=== PATIENT | male | born 1955 | race Caucasian/White ===

== ENCOUNTER 2017-10-11 15:18 | Emergency (ER) | payer BC ==
[2017-10-11 15:34] VITALS: BP 112/60
--- NOTE | 2017-10-11 15:38 | UC ---
General HPI - HPI Summary HPI Summary: has been feeling bad "for a while" but acutely worse in the past 7 days and even more today---checked his BS with glucometer and it read H. Reports Polydipsia, polyphagia and polyuria - History of Current Complaint Chief Complaint: UCDizziness Stated Complaint: HIGH BLOOD SUGAR Time Seen by Provider: 10/11/17 15:35 Hx Obtained From: Patient Onset/Duration: Gradual Onset, Worse Since - past week Timing: Constant Pain Intensity: 0 Associated Signs & Symptoms: Positive: Weakness - Allergy/Home Medications Allergies/Adverse Reactions: Allergies Allergy/AdvReac Type Severity Reaction Status Date / Time No Known Allergies Allergy Verified 10/11/17 15:34 PMH/Surg Hx/FS Hx/Imm Hx Previously Healthy: No Endocrine History: Diabetes, Dyslipidemia Other Endocrine History: pcp sugested started glucophage last year -patient wanted to try diet and e Cardiovascular History: Hypertension - Surgical History Surgical History: None - Family History Known Family History: Positive: None - Social History Occupation: Employed Full-time Lives: With Family Alcohol Use: None Alcohol Amount: Sober for 7 years Substance Use Type: None Smoking Status (MU): Never Smoked Tobacco Review of Systems Constitutional: Negative Skin: Negative Eyes: Negative ENT: Negative Respiratory: Other - MARTI Cardiovascular: Negative Gastrointestinal: Negative Genitourinary: Frequency, Urgency Motor: Negative Neurovascular: Negative Musculoskeletal: Negative Neurological: Negative Psychological: Negative Is Patient Immunocompromised?: No All Other Systems Reviewed And Are Negative: Yes Physical Exam Triage Information Reviewed: Yes Appearance: Well-Appearing, No Pain Distress, Well-Nourished Vital Signs: Initial Vital Signs Temp 98.7 F 10/11/17 15:31 Pulse 99 10/11/17 15:31 Resp 20 10/11/17 15:31 BP 112/60 10/11/17 15:31 Pulse Ox 98 10/11/17 15:31 Vital Signs Reviewed: Yes Eye Exam: Normal Eyes: Positive: Conjunctiva Clear ENT Exam: Normal ENT: Positive: Normal ENT inspection, Hearing grossly normal. Negative: Trismus , Muffled voice, Hoarse voice Dental Exam: Normal Neck exam: Normal Neck: Positive: Supple, Nontender, No Lymphadenopathy Respiratory Exam: Normal Respiratory: Positive: Chest non-tender, Lungs clear, Normal breath sounds, No respiratory distress, No accessory muscle use Cardiovascular Exam: Normal Cardiovascular: Positive: RRR, No Murmur, Pulses Normal, Brisk Capillary Refill Musculoskeletal Exam: Normal Musculoskeletal: Positive: Strength Intact, ROM Intact Neurological Exam: Normal Neurological: Positive: Alert, Muscle Tone Normal Psychological Exam: Normal Skin Exam: Normal Diagnostics - Laboratory Diagnostic Studies Completed/Ordered: ua- sg ,1.005, - ketones, +3 glucose,, FSBS High (>400) - EKG Cardiac Rate: NL Cardiac Rhythm: Sinus: Normal Ectopy: PACs ST Segment: Normal Course/Dx - Course Course Of Treatment: IVF,[place] [facility] [place] - Differential Dx - Multi-Symptom Provider Diagnoses: HYperglycemia - Physician Notifications Discussed Patient Care With: Cy Taylor Time Discussed With Above Provider: 16:00 Instructed by Provider To: Transfer Discharge - Sign-Out/Discharge Documenting (check all that apply): Patient Departure - Discharge Plan Condition: Fair Disposition: TRANS HIGHER LVL OF CARE FAC Referrals: Pepito Jackson MD [Primary Care Provider] - - Billing Disposition and Condition Condition: FAIR Disposition: Trans Higher Lvl of Care Fac
[2017-10-11] MEDS ORDERED: NS 0.9% 1000 ML* 1,000 ML IV ONE (15:50)
== END 2017-10-11 16:20 | disposition short-term general hospital (02) ==
LOC: UCEAST 15:18
DX: E11.65 Type 2 diabetes mellitus with hyperglycemia (principal); I10 Essential (primary) hypertension; Z79.84 Long term (current) use of oral hypoglycemic drugs
CPT/HCPCS: 81003; 93005; 96360; 99213; G0463

== ENCOUNTER 2017-10-11 16:38 | Observation (INO) | payer BC ==
--- NOTE | 2017-10-11 18:39 | ED ---
HPI Diabetic - HPI Summary HPI Summary: This is screly Ruffin documenting for attending Cy Taylor MD. Pt is a 62 y/o male who presents to [facility] c/o high blood sugar. He has never been diagnosed with DM before, but had a blood sugar level of 128 last Fall. Today he c/o extreme thirst, increased urinary frequency, weight loss, fatigue, and food cravings. Pt denies any pain. Pt was prescribed medication, but did not take it. FHx DM. PMHx HTN. - History Of Current Complaint Chief Complaint: EDDiabeticProb Time Seen by Provider: 10/11/17 16:51 Hx Obtained From: Patient Onset/Duration: Gradual Onset, Still Present Timing: Constant Character: Alert Aggravating: Non-compliant - Medications prescribed by PCP last Fall Associated Signs & Symptoms: Polydipsia, Polyuria, Weight Loss Related History: Other - FHx of DM - Allergies/Home Medications Allergies/Adverse Reactions: Allergies Allergy/AdvReac Type Severity Reaction Status Date / Time No Known Allergies Allergy Verified 10/11/17 15:34 PMH/Surg Hx/FS Hx/Imm Hx Endocrine/Hematology History: Denies: Hx Diabetes, Hx Thyroid Disease Cardiovascular History: Reports: Hx Hypertension Respiratory History: Denies: Hx Asthma, Hx Chronic Obstructive Pulmonary Disease (COPD) GI History: Denies: Hx Ulcer Infectious Disease History: No Infectious Disease History: Denies: Hx Hepatitis, Hx Human Immunodeficiency Virus (HIV), Traveled Outside the [place] in Last 30 Days - Family History Known Family History: Positive: Diabetes - Social History Alcohol Use: None Alcohol Amount: Sober for 7 years Substance Use Type: Reports: None Smoking Status (MU): Never Smoked Tobacco Review of Systems Positive: Fatigue, Other - Polydipsia, weight loss Positive: Other - Food cravings Positive: frequency, urgency Negative: Myalgia All Other Systems Reviewed And Are Negative: Yes Physical Exam - Summary Physical Exam Summary: VITAL SIGNS: Reviewed. GENERAL: Patient is a well-developed and nourished MALE who is lying comfortable in the stretcher. Patient is not in any acute respiratory distress. HEAD AND FACE: No signs of trauma. No ecchymosis, hematomas or skull depressions. No sinus tenderness. EYES: PERRLA, EOMI x 2, No injected conjunctiva, no nystagmus. EARS: Hearing grossly intact. Ear canals and tympanic membranes are within normal limits. MOUTH: Oropharynx within normal limits. NECK: Supple, trachea is midline, no adenopathy, no JVD, no carotid bruit, no c- spine tenderness, neck with full ROM. CHEST: Symmetric, no tenderness at palpation LUNGS: Clear to auscultation bilaterally. No wheezing or crackles. CVS: Regular rate and rhythm, S1 and S2 present, no murmurs or gallops appreciated. ABDOMEN: Soft, non-tender. No signs of distention. No rebound no guarding, and no masses palpated. Bowel sounds are normal. EXTREMITIES: FROM in all major joints, no edema, no cyanosis or clubbing. NEURO: Alert and oriented x 3. No acute neurological deficits. Speech is normal and follows commands. SKIN: Dry and warm Triage Information Reviewed: Yes Vital Signs On Initial Exam: Initial Vitals Temp Pulse Resp BP Pulse Ox 98 F 80 16 126/84 100 10/11/17 16:42 10/11/17 16:42 10/11/17 16:42 10/11/17 16:42 10/11/17 16:42 Vital Signs Reviewed: Yes Diagnostics - Vital Signs Vital Signs Temp Pulse Resp BP Pulse Ox 10/11/17 16:42 98 F 80 16 126/84 100 - Laboratory Result Diagrams: 10/11/17 18:39 10/11/17 18:39 Lab Statement: Any lab studies that have been ordered have been reviewed, and results considered in the medical decision making process. - EKG 19:36 Cardiac Rate: NL - 74 bpm EKG Rhythm: Sinus Rhythm ST Segment: Normal EKG Interpretation: Q wave in V3 Diabetic Course/Dx - Course Assessment/Plan: Patient is a 62-year-old male who presents to the emergency department with a chief complaint of having polydipsia and polyuria and some polyphagia. The patient has no history of diabetes however his last blood test showed that the blood pressure was [address] Jackson. Blood test result shows a slight anemia, sodium of 119, BUN/creatinine 30 creatinine 1.6 glucose of 1054 CRP of 34. Urinalysis is negative for UTI. Chest x-ray impression: EKG shows a normal sinus rhythm with no ST elevation. And 80 course the patient was started with 2 IV accesses, the patient was given 2 L of IV fluids, and I order an insulin drip. At this time I discussed my physical exam and findings with Dr. Love from the hospitalist services and he agrees to admit the patient to his services for further workup and management. He reports that he will get a bed in ICU. At this point the patient is hemoglobin and crit stable alert and oriented 3. - Diagnoses Provider Diagnoses: Type 2 diabetes mellitus with hyperosmolar nonketotic hyperglycemia - Physician Notifications Discussed Care Of Patient With: Davdi Love Time Discussed With Above Provider: 19:27 Instructed by Provider To: Admit As Inpatient - Dr. Love accepts pt for admission. Discharge - Sign-Out/Discharge Documenting (check all that apply): Patient Departure - Admit - Discharge Plan Condition: Stable Disposition: ADMITTED TO [facility] Referrals: Pepito Jackson MD [Primary Care Provider] -
[2017-10-11 18:46] LABS: ABS Basophils 0 10^3/ul (0-0.2); ABS Eosinophils 0.1 10^3/ul (0-0.6); ABS Lymphocytes 1.1 10^3/ul (1.0-4.8); ABS Monocytes 0.6 10^3/ul (0-0.8); ABS Neutrophils 8.6 10^3/ul (1.5-7.7); ABS Nucleated RBC 0 10^3/ul; Eosinophil % 0.7 % (0-6); Hematocrit 36 % (42-52); Lymphocyte % 10.3 % (25-47); Mean Corpuscular HGB Conc 33 g/dl (31-36); Mean Corpuscular Hemoglobin 33 pg (27-31); Mean Corpuscular Volume 100 fL (80-94); Mean Platelet Volume 9.1 um3 (7.4-10.4); Nucleated Red Blood Cells % 0; Platelet Count 406 10^3/ul (150-450); Red Blood Count 3.61 10^6/ul (4.00-5.40); Red Cell Distribution Width 13 % (10.5-15); White Blood Count 10.4 10^3/ul (3.5-10.8)
[2017-10-11] MEDS: NS 0.9% 1000 ML* 3,000 ML IV ONE (18:53)
[2017-10-11 19:05] LABS: EGFR Non-African American 43.1 (>60)
[2017-10-11 19:12] LABS: Urine Appearance Clear; Urine Blood 1+ (Negative); Urine Color Yellow; Urine Ketones Negative (Negative); Urine Protein Negative (Negative); Urine Red Blood Cell Trace(0-2/hpf) (Absent); Urine Specific Gravity 1.023 (1.010-1.030); Urine Urobilinogen Negative (Negative); Urine White Blood Cell Absent (Absent)
[2017-10-11] MEDS ORDERED: Insulin IVPB 100 units/100 ml 100 UNITS/100 ML UNIT IVPB ONE ×2 (19:24→20:10)
[2017-10-11] MEDS ORDERED: Al Hydrox/Mg Hydrox/Simet LIQ* 30 ML UDC PO PRN (20:34)
[2017-10-11] MEDS ORDERED: Albuterol 2.5 MG/3 ML NEB.SOL* (0.083%) INH PRN (20:34)
[2017-10-11] MEDS ORDERED: Ondansetron INJ* 2 MG/ML VIAL IV PRN (20:34)
[2017-10-11] MEDS ORDERED: Magnesium Hydroxide LIQ* 30 ML UDC PO PRN (20:34)
[2017-10-11] MEDS ORDERED: Acetaminophen TAB* 325 MG PO PRN (20:34)
--- NOTE | 2017-10-11 22:29 | HP ---
AMENDED REPORT NOW INCLUDES COSIGNER DESIGNATION - ESIGNED BEFORE ADJUSTMENT CC: Pepito Jackson MD* ADMISSION HISTORY AND PHYSICAL: DATE OF ADMISSION: 10/11/17. PATIENT OF: David Love MD. PRIMARY CARE PHYSICIAN: Pepito Jackson MD. ATTENDING HOSPITALIST WHILE THE PATIENT HERE: Susan Kate* (DICTATED BY GERDA BARR) CHIEF COMPLAINT: Fatigue, polydipsia, polyuria and new onset diabetes mellitus. HISTORY OF PRESENT ILLNESS: Mr. Ayala is a 62-year-old gentleman, who has a past medical history significant for hypertension and hyperlipidemia, who presented to the emergency room earlier today after he was sent from the [facility]gent Care [facility] due to extremely elevated blood glucose level. The patient notes for the past couple of weeks or so he had noticed increased fatigue and decreased stamina overall. He also had been experiencing increasing episodes of polydipsia, polyuria as well as increased craving to eat sweats. He was diagnosed with diabetes mellitus back of last fall according to his statement and was put on some oral medications to take, however, the patient ignored his primary care physician's advice and did not take his medicine and has never followed up with him since. He presented to the emergency room and initial blood glucose was check was over 1000. He reports associated bilateral toes numbness, but denies any visual changes, fever, chills, shortness of breath, cough or any other associated symptoms. He, prior to that, is relatively healthy upper middle age gentleman, who has been on medication for a known history of hypertension and hyperlipidemia. He was evaluated in the emergency room and had blood gases drawn that showed normal pH of 7.38. Again, his glucose was extremely elevated for which he was started on a insulin drip and we were asked to see the patient for further evaluation of new onset diabetes mellitus and to consider admission for control of his hyperglycemia. PAST MEDICAL HISTORY: As mentioned above, significant for hypertension and hyperlipidemia. PAST SURGICAL HISTORY: None. MEDICATIONS: His medications at home include: 1. Lipitor 10 mg p.o. q. daily. 2. Lisinopril 5 mg p.o. q. daily. 3. Metoprolol succinate 25 mg p.o. q. daily. ALLERGIES: He has no known drug allergies. FAMILY HISTORY: Significant for coronary artery disease with [place] in his father back in his 50s, also his father with a history of alcoholism. His mother with history of CVA and he has a brother with history of prostate cancer. 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 He has never smoked cigarettes. He is a recovered alcoholic, who used to drink in the remote past, but quit drinking back in 2012. He used to occasionally smoke marijuana, but denies any illicit drug use now. He is and has two grown up step children and his is the healthcare proxy carrier. REVIEW OF SYSTEMS: See HPI. Otherwise, 14-point review of systems were examined and were essentially negative. PHYSICAL EXAMINATION GENERAL: He is a pleasant, healthy-appearing upper middle aged gentleman, in no acute distress or discomfort at the time of admission. VITAL SIGNS: Revealed a temperature of 98, blood pressure of 141/82, pulse of 79, respirations of 18 with O2 sat of 99% on room air. HEENT: Head is normocephalic, atraumatic. Sclerae anicteric. PERRLA. EOMs intact. Oropharynx is pink and moist. NECK: Supple. Trachea midline. No cervical adenopathy, thyromegaly, or JVD. LUNGS: Clear to auscultation bilaterally. HEART: Regular rate and rhythm. Normal S1 and S2 without rubs, murmurs, or gallops. BACK: With normal curvature and no CVA tenderness. ABDOMEN: Soft, nontender, and nondistended. No hernias, masses, or hepatosplenomegaly. EXTREMITIES: Without cyanosis, clubbing or edema. NEUROLOGIC: He is awake, alert and oriented. Tongue is midline. Sensation is intact throughout. RECTAL EXAM: Deferred at this time. LABORATORY WORKUP: CBC with white count of 10,000, hemoglobin of 12, hematocrit of 36, and platelets of 406. Again, his blood gases were drawn with pH of 7.38, pCO2 is 46, pO2 is 19 and his bicarb is 24.7. Chemistry panel with sodium of 119, which is a false hyponatremia related to his extremely elevated blood glucose level, potassium 4.5, chloride 84, CO2 26, BUN of 30 and creatinine of 1.62. Again, his BUN and creatinine elevated in the setting of polyuria compared to his baseline from last December. Glucose is 1054, magnesium 2.4, C-reactive protein 34.95 and LFTs essentially within normal limits. ACCESSORY DIAGNOSTIC DATA: The patient had 2-view chest x-ray in ED and results are pending at this time. His EKG was reviewed and showed normal sinus rhythm with no evidence of ST changes. IMPRESSION: A 62-year-old gentleman with a past medical history significant for hypertension and hyperlipidemia and who was worked up last fall for hyperglycemia, but never followed with his physician or took any medication for this, who presented to the emergency room, sent from [facility] with severely elevated blood glucose level and new onset diabetes mellitus. ASSESSMENT AND PLAN: 1. Type 2 diabetes mellitus. The patient received appropriate fluid resuscitation in the ED with 3 L of normal saline. We will initiate his insulin drip at rate of 0.05 per kilogram per protocol and will be admitted to the ICU unit for close observation and frequent glucose checks. I described to him the pathophysiology behind his hyperglycemia and associated symptoms. He also informed me that he ate half a gallon of ice cream sorbet yesterday as well as multiple sodas today as well since he has been having a lot of craving for sweets. We will keep him n.p.o. for now except for ice chips and we will initiate insulin drip per protocol and will be admitted to the ICU unit. We will also continue his IV hydration at the rate of 150 mL per hour and recheck his labs and hemoglobin A1c in the morning. 2. Hypertension. We will continue his metoprolol and lisinopril. 3. Hyperlipidemia. We will resume his statin. 4. DVT prophylaxis. The patient scored 2 with moderate risk for deep vein thrombosis and will be covered with SCDs for the time being. 5. Code status: He is a full code. 6. Disposition: Admit to ICU for close observation and control of hyperglycemia with insulin. TIME SPENT: Approximately 60 minutes was spent admitting this patient with greater than 50% on taking history and performing physical exam. I have discussed the plan of care with my attending, Dr. Love, who agreed and will follow up accordingly. GERDA BARR [id number]/CPS #: [id number]
[2017-10-11] MEDS: NS 0.9% 1000 ML* 1,000 ML IV SCH (22:45)
[2017-10-11 22:48] LABS: EGFR Non-African American 54.6 (>60)
[2017-10-11] MEDS: Atorvastatin* 10 MG TAB PO SCH (22:50)
[2017-10-12 05:52] LABS: ABS Basophils 0 10^3/ul (0-0.2); ABS Eosinophils 0.2 10^3/ul (0-0.6); ABS Lymphocytes 2.1 10^3/ul (1.0-4.8); ABS Monocytes 0.6 10^3/ul (0-0.8); ABS Neutrophils 7.1 10^3/ul (1.5-7.7); ABS Nucleated RBC 0 10^3/ul; Eosinophil % 1.6 % (0-6); Hematocrit 32 % (42-52); Lymphocyte % 20.7 % (25-47); Mean Corpuscular HGB Conc 34 g/dl (31-36); Mean Corpuscular Hemoglobin 33 pg (27-31); Mean Corpuscular Volume 95 fL (80-94); Mean Platelet Volume 8.5 um3 (7.4-10.4); Nucleated Red Blood Cells % 0.1; Platelet Count 341 10^3/ul (150-450); Red Blood Count 3.34 10^6/ul (4.00-5.40); Red Cell Distribution Width 13 % (10.5-15)
[2017-10-12 06:02] LABS: EGFR Non-African American 81.8 (>60)
[2017-10-12] MEDS: Metoprolol Succinate XL TAB* 25 MG PO SCH (08:46)
[2017-10-12] MEDS: Lisinopril TAB* 5 MG PO SCH (08:46)
[2017-10-12] MEDS: Insulin LISPRO* 1 UNITS UNIT SUBCUT SCH ×4 (08:46→21:37)
--- NOTE | 2017-10-12 11:39 | RAD ---
INDICATION: Elevated blood glucose. Cardiac disease. COMPARISON: October 16, 2009 TECHNIQUE: Dual energy PA and routine lateral views of the chest were obtained. REPORT: No focal pulmonary lesion, compelling alveolar consolidation, pleural effusion, pneumothorax. The heart, pulmonary vasculature, and mediastinal contours are unremarkable. Negative for free air beneath the diaphragm. Healed LEFT ninth rib fracture. No acute fracture evident. IMPRESSION: #. No evidence for acute intrathoracic disease. R0
[2017-10-12] MEDS: NS 0.9% 1000 ML* 1,000 ML IV SCH ×2 (12:30→23:50)
[2017-10-12] MEDS ORDERED: Insulin GLARGINE(*) 1 UNITS UNIT SUBCUT SCH (21:00)
[2017-10-12] MEDS: Atorvastatin* 10 MG TAB PO SCH (21:37)
[2017-10-13 06:37] LABS: Corrected Retic Count 1.7 % (0.5-1.5); Hematocrit 33 % (42-52); Hematocrit for Retic CNT 33 % (42-52); Hemoglobin 11.1 g/dl (14.0-18.0); Immature Retic Fraction 0.53; Mean Corpuscular HGB Conc 34 g/dl (31-36); Mean Corpuscular Hemoglobin 33 pg (27-31); Mean Corpuscular Volume 96 fL (80-94); Mean Platelet Volume 8.3 um3 (7.4-10.4); Platelet Count 305 10^3/ul (150-450); RBC Retic Count 3.39 10^6/ul (4.6-6.2); Red Blood Count 3.39 10^6/ul (4.00-5.40); Red Cell Distribution Width 13 % (10.5-15); White Blood Count 9.2 10^3/ul (3.5-10.8)
[2017-10-13 06:53] LABS: EGFR Non-African American 87.2 (>60)
--- NOTE | 2017-10-13 08:42 | PN ---
Subjective - Subjective Reason for Note: Discharge Note History: DISCHARGE SUMMARY: I saw Tee Ayala as an outpatient and made the diagnosis of pre-diabetes 04/23. I asked him to change his diet, exercise and start metformin. I also asked him for a lab A1c. He did none of those things. His Morenita Ayala has type 1 diabetes. He presented with weight loss, polyuria, polydipsia, orthostatic hypotension and hyperosmolar hyperglycemia. He has recovered. He is feeling normal this morning. His mental state is normal. He has no nausea, vomiting, abdominal pain. He has no history of any precipitating infections. He has no chest pain, dyspnea or palpitations. Active Problems: Active Problems Elevated ferritin (Acute) R79.89 Hyperosmolar hyperglycemic coma due to diabetes mellitus without ketoacidosis ( Acute) E11.01, E11.65 New onset type 2 diabetes mellitus (Acute) E11.9 History of alcoholism (Chronic) F10.21 Hyperlipidemia (Chronic) E78.5 Current Medications: Current Medications Acetaminophen (Tylenol Tab*) 975 mg PO Q6H PRN PRN Reason: FEVER/PAIN Al Hydrox/Mg Hydrox/Simethicone (Maalox Plus*) 30 ml PO Q6H PRN PRN Reason: INDIGESTION Albuterol (Ventolin 2.5 Mg/3 Ml Neb.Leola*) 2.5 mg INH RT.[id number] AWAKE PRN PRN Reason: sob/wheezing Atorvastatin Calcium (Lipitor*) 10 mg PO 2100 [facility] Last Admin: 10/12/17 21:37 Dose: 10 mg Sodium Chloride (Ns 0.9% 1000 Ml*) 1,000 mls @ 85 mls/hr IV PER RATE [facility] Last Admin: 10/12/17 23:50 Dose: 85 mls/hr Insulin Glargine (Lantus(*)) 10 units 0.12 units/kg (10 units) SUBCUT 2100 [facility] Last Admin: 10/12/17 21:37 Dose: 10 unit Insulin Human Lispro (Humalog*) 0 units SUBCUT ACHS [facility]; Protocol Last Admin: 10/12/17 21:37 Dose: 2 unit Lisinopril (Prinivil Tab*) 5 mg PO DAILY [facility] Last Admin: 10/12/17 08:46 Dose: 5 mg Magnesium Hydroxide (Milk Of Magnesia Liq*) 30 ml PO Q4H PRN PRN Reason: CONSTIPATION Metoprolol Succinate (Toprol Xl Tab*) 25 mg PO DAILY [facility] Last Admin: 10/12/17 08:46 Dose: 25 mg Ondansetron HCl (Zofran Inj*) 4 mg IV Q4H PRN PRN Reason: NAUSEA/VOMITING Home Medications: Home Medications Medication Instructions Recorded Confirmed Type Atorvastatin* [Lipitor*] 10 mg PO DAILY 12/10/13 10/11/17 History Lisinopril TAB* [Prinivil TAB 5 5 mg PO DAILY 12/10/13 12/10/13 History MG*] Metoprolol Succinate [Metoprolol 25 mg PO DAILY 12/10/13 12/10/13 History Succinate ER] Allergies: Allergies Allergy/AdvReac Type Severity Reaction Status Date / Time No Known Allergies Allergy Verified 10/11/17 15:34 Objective - Vital Signs Vital Signs: Vital Signs 10/12/17 10/12/17 10/12/17 09:00 09:01 09:51 Temperature 98.0 F Pulse Rate 88 89 77 Respiratory 16 26 16 Rate Blood Pressure 116/73 134/63 (mmHg) O2 Sat by Pulse 98 99 100 Oximetry 10/12/17 10/12/17 10/12/17 10:13 10:14 11:34 Temperature 98.0 F 97.6 F Pulse Rate 77 78 Respiratory 16 16 14 Rate Blood Pressure 134/63 130/71 (mmHg) O2 Sat by Pulse 100 100 Oximetry 10/12/17 10/12/17 10/12/17 16:01 20:15 21:42 Temperature 98.4 F 98.4 F Pulse Rate 73 66 Respiratory 20 16 16 Rate Blood Pressure 116/63 123/53 (mmHg) O2 Sat by Pulse 100 100 Oximetry 10/13/17 10/13/17 10/13/17 00:00 03:26 07:41 Temperature 97.7 F 97.8 F Pulse Rate 71 64 Respiratory 18 16 16 Rate Blood Pressure 156/76 155/75 (mmHg) O2 Sat by Pulse 100 100 Oximetry - Intake and Output Intake and Output: Intake & Output 10/10/17 10/11/17 10/12/17 10/13/17 11:59 11:59 11:59 11:59 Intake Total 2038.2 2935 Output Total 2225 1550 Balance -186.8 1385 Weight 193 lb 1.999 oz Intake: IV Fluids 1629 1255 NS (0.9%) 1629 1255 Medicated IV 9.2 CC - Insulin 9.2 Oral 400 1680 Output: Urine 2225 1550 ADLs: Meal Record Start: 10/11/17 21: 09 Freq: 09,13,18 Status: Inactive Protocol: Created 10/11/17 21:09 System (Rec: 10/11/17 21:09 System ICU-C07) ADLs: Meal Record Start: 10/12/17 10: 13 Freq: Status: Active Protocol: Created 10/12/17 10:13 [id number] (Rec: 10/12/17 10:13 [id number] SSU-M16) Document 10/12/17 13:00 [id number] (Rec: 10/12/17 15:27 [id number] SSU-M16) Document 10/12/17 18:03 [id number] (Rec: 10/12/17 18:03 [id number] SSU-C19) Intake and Output Start: 10/11/17 16: 46 Freq: Status: Active Protocol: Created 10/11/17 16:46 System (Rec: 10/11/17 16:46 System ED-C26) Document 10/11/17 20:50 [id number] (Rec: 10/11/17 20:58 [id number] ED-C20) Document 10/11/17 22:30 [id number] (Rec: 10/11/17 22:35 [id number] EDRM-C07) Intake and Output Start: 10/11/17 21: 09 Freq: 06,14,2200 Status: Inactive Protocol: Created 10/11/17 21:09 System (Rec: 10/11/17 21:09 System ICU-C07) Document 10/11/17 23:00 [id number] (Rec: 10/11/17 23:33 [id number] ICU-C07) Document 10/12/17 02:00 [id number] (Rec: 10/12/17 06:54 [id number] ICU-C07) Document 10/12/17 05:22 [id number] (Rec: 10/12/17 05:22 [id number] ICU-M18) Document 10/12/17 07:29 [id number] (Rec: 10/12/17 07:29 [id number] ICU-C07) Document 10/12/17 09:00 [id number] (Rec: 10/12/17 09:23 [id number] ICU-C07) Intake and Output Start: 10/12/17 10: 13 Freq: DAILY@0600,1400,2200 Status: Active Protocol: Created 10/12/17 10:13 [id number] (Rec: 10/12/17 10:13 [id number] SSU-M16) Document 10/12/17 14:32 [id number] (Rec: 10/12/17 14:33 [id number] SSU-C19) Document 10/12/17 20:15 [id number] (Rec: 10/12/17 20:15 [id number]) Document 10/12/17 21:41 [id number] (Rec: 10/12/17 21:42 [id number] [facility]-M16) Document 10/12/17 22:47 [id number] (Rec: 10/12/17 22:47 [id number]) Document 10/12/17 23:59 [id number] (Rec: 10/12/17 23:59 [id number] [id number]) Document 10/13/17 03:28 [id number] (Rec: 10/13/17 03:28 [id number]) Document 10/13/17 06:12 [id number] (Rec: 10/13/17 06:12 [id number]) - Physical Exam General: No Cyanosis, No Anemia, No Jaundice, No Clubbing Skin: Normal: Rash Endocrine: No Central Obesity, No Under developed secondary sexual characteristics, No Acromegaly, No Vitiligo, No Flushing, No Violaceious striae , No Vesta Syndrome, No Buccal pigmenatation, No Martines Crease Pigmentation Lungs and Chest: Yes: Chest Expansion Full, Chest Expansion Symetrica, Percussion Note Resonant, Vessicular Breath Sounds. No: Crackles, Wheezes, Respiratory Distress Heart Rate and Rhythm: Regular JVP: Not Elevated Additional Cardiovascular: Yes: Normal Heart Sounds. No: Heart Murmur, Pedal Edema Abdominal Exam: Yes: Soft, Bowel Sounds Present. No: Distention, Abdominal Tenderness - Extremities Cranial Nerves II-XII Intact: Yes Limbs: Normal Power, Normal Tone - Neuro Orientation: A/O x3 Speech: Normal Results - Results Lab Results: Laboratory Results - last 24 hr 10/11/17 10/12/17 10/12/17 18:39 08:25 12:22 WBC RBC RBC (Retic) Hgb Hct HCT (Retic) MCV MCH MCHC RDW Plt Count MPV Retic Count, Calc Corrected Retic Count Retic Shift Factor Retic Production Index Immature Retic Fraction Mean Retic Volume Sodium Potassium Chloride Carbon Dioxide Anion Gap BUN Creatinine Est GFR ( Amer) Est GFR (Non-Af Amer) BUN/Creatinine Ratio Glucose POC Glucose (mg/dL) 241 H 287 H Hemoglobin A1c 12.6 H Calcium Iron TIBC % Saturation Unsat Iron Binding Transferrin Ferritin Triglycerides Cholesterol LDL Cholesterol HDL Cholesterol Vitamin B12 Folate 10/12/17 10/12/17 10/13/17 17:18 21:25 06:24 WBC 9.2 RBC 3.39 L RBC (Retic) 3.39 L Hgb 11.1 L Hct 33 L HCT (Retic) 33 L MCV 96 H MCH 33 H MCHC 34 RDW 13 Plt Count 305 MPV 8.3 Retic Count, Calc 2.3 H Corrected Retic Count 1.7 H Retic Shift Factor 1.5 Retic Production Index 1.10 Immature Retic Fraction 0.53 Mean Retic Volume 107.6 Sodium Potassium Chloride Carbon Dioxide Anion Gap BUN Creatinine Est GFR ( Amer) Est GFR (Non-Af Amer) BUN/Creatinine Ratio Glucose POC Glucose (mg/dL) 304 H 245 H Hemoglobin A1c Calcium Iron TIBC % Saturation Unsat Iron Binding Transferrin Ferritin Triglycerides Cholesterol LDL Cholesterol HDL Cholesterol Vitamin B12 Folate 10/13/17 10/13/17 06:24 07:37 WBC RBC RBC (Retic) Hgb Hct HCT (Retic) MCV MCH MCHC RDW Plt Count MPV Retic Count, Calc Corrected Retic Count Retic Shift Factor Retic Production Index Immature Retic Fraction Mean Retic Volume Sodium 134 L Potassium 3.4 L Chloride 104 Carbon Dioxide 25 Anion Gap 5 BUN 15 Creatinine 0.88 Est GFR ( Amer) 105.5 Est GFR (Non-Af Amer) 87.2 BUN/Creatinine Ratio 17.0 Glucose 190 H POC Glucose (mg/dL) 205 H Hemoglobin A1c Calcium 8.0 L Iron 42 L TIBC 179 L % Saturation 23 Unsat Iron Binding 137 Transferrin 128 L Ferritin 560.4 H Triglycerides 183 Cholesterol 80 LDL Cholesterol 21 HDL Cholesterol 22.3 Vitamin B12 750 Folate 11.44 Radiology Results: Patient Name: TEE AYALA Medical Record#: [id number] Ordering Physician: Cy Taylor MD Acct.#: [id number] : 1955 Age: 62 Sex: M Location: SURGICAL STAY UNIT Exam Date: 10/11/171930 ADM Status: ADM Efraín Order Information: CHEST PA & LAT 2 VWS Accession Number: [id number] CPT: 34912 INDICATION: Elevated blood glucose. Cardiac disease. COMPARISON: October 16, 2009 TECHNIQUE: Dual energy PA and routine lateral views of the chest were obtained. REPORT: No focal pulmonary lesion, compelling alveolar consolidation, pleural effusion, pneumothorax. The heart, pulmonary vasculature, and mediastinal contours are unremarkable. Negative for free air beneath the diaphragm. Healed LEFT ninth rib fracture. No acute fracture evident. IMPRESSION: #. No evidence for acute intrathoracic disease. R0 <Electronically signed by Cy Mcdonald MD in OV> 10/12/17 1136 Dictated By: Cy Mcdonald MD Dictated Date/Time: 10/12/17 1136 Transcribed Date/Time: 10/12/17 1133 Copy to: CC:Pepito Jackson MD; David Love MD; Cy Taylor MD Imaging - [facility] - [place] [facility] [address] [address] ph ([phone]) ph ([phone]) ph ([phone]) This report is only to be considered final once signed by the Provider(s) as displayed in the "<Electronically Signed by >" field (s). Absence of a signature indicates the report is in a draft status and still needs to be finalized. In the event this document was created by someone other than the signing Provider, the individual initiating the document will be listed in the "Entered by:" or "Dictated by:" parry. 1 of Assessment - Problem List Assessment: Patient Problems Elevated ferritin (Acute) Hyperosmolar hyperglycemic coma due to diabetes mellitus without ketoacidosis ( Acute) New onset type 2 diabetes mellitus (Acute) History of alcoholism (Chronic) Hyperlipidemia (Chronic) Plan: Hyperosmolar hyperglycemic coma due to diabetes mellitus without ketoacidosis ( Acute) New onset type 2 diabetes mellitus (Acute) He presents with new onset T2D. His beta cells are likely not producing insulin owing to glucose- toxicity. I will maintain him on basal insulin. I will start him on glipizide 5 mg bid and metformin ER 1,000 bid. He will start a consistent carbohydrate diet. I will have him check his fingersticks before meals. He will follow at my office for follow and diabetes education. I will likely wean him off the insulin. Elevated ferritin (Acute) This doesn't appear to be an acute phase reaction. He may have some hepatic steatosis causing this. I will rule out hemochromatosis History of alcoholism (Chronic) not currently an issue Hyperlipidemia (Chronic) stable I discussed the above with the patient and also called Morenita Ayala on the phone - couldn't reach her. He is safe for discharge today.
[2017-10-13] MEDS: Insulin LISPRO* 1 UNITS UNIT SUBCUT SCH (08:46)
[2017-10-13] MEDS: Lisinopril TAB* 5 MG PO SCH (08:46)
[2017-10-13] MEDS: Metoprolol Succinate XL TAB* 25 MG PO SCH (08:46)
[2017-10-13 11:23] VITALS: BP 148/70
== END 2017-10-13 11:20 | disposition home or self-care (01) ==
LOC: ED 16:38 → ICU 20:34 → SSU 10-12 10:01
PROVIDERS: ADMIT Hospitalist; ATTEND Internal Medicine
DX: E11.01 Type 2 diabetes mellitus with hyperosmolarity with coma (principal); E11.65 Type 2 diabetes mellitus with hyperglycemia; R79.89 Other specified abnormal findings of blood chemistry; F10.21 Alcohol dependence, in remission; E78.5 Hyperlipidemia, unspecified; R53.83 Other fatigue; R63.1 Polydipsia; I10 Essential (primary) hypertension
CPT/HCPCS: 36415; 71046; 80048; 80053; 80061; 81003; 81015; 82550; 82607; 82728; 82746; 82803; 83036; 83540; 83550; 83735; 84681; 85025; 85027; 85045; 86140; 87641; 93005; 99284; A9270-GY; G0378; J1815